=== PATIENT | female | born 1985 | race Caucasian/White ===

== ENCOUNTER 2020-05-16 20:07 | Emergency (ER) | payer OTHER ==
[~2020-05-16] VITALS: Ht 147.3 cm; Wt 81.7 kg
[~2020-05-16 20:07] MED LIST: B 12; CALCIUM 600 +1 EAC1 PO; CELEXA 20 MG TA20 MG PO; COLACE100 MG PO; DESYREL; GABAPENTIN300 MG PO; ZANAFLEX2 M1 PO
[2020-05-16 21:36] VITALS: BP 136/70
== END 2020-05-16 21:36 | disposition home or self-care (01) ==
LOC: M.ERS 20:07
DX: S20.01XA Contusion of right breast, initial encounter (principal); N63.11 Unspecified lump in the right breast, upper outer quadrant; Z90.49 Acquired absence of other specified parts of digestive tract; Z88.2 Allergy status to sulfonamides; Z88.5 Allergy status to narcotic agent; Z88.6 Allergy status to analgesic agent; Z88.8 Allergy status to other drugs, medicaments and biological substances; X58.XXXA Exposure to other specified factors, initial encounter; Y93.89 Activity, other specified; Y92.89 Other specified places as the place of occurrence of the external cause; Y99.8 Other external cause status